=== PATIENT | male | born 1995 | race Caucasian/White ===

== ENCOUNTER → 2018-03-28 | Outpatient (CLI) | payer OTHER ==
--- NOTE | 2018-03-28 18:05 | CONS ---
CONSULTATION DATE OF SERVICE: 03/28/2018 A 22-year-old gentleman who has been evaluated in the sleep center for possible obstructive sleep apnea-hypopnea syndrome. HISTORY OF PRESENT ILLNESS AND SLEEP-WAKE EVALUATION: His sleep schedule working days from 10:00 P.M.-12:00 p.m. until 4:30 a.m., on the weekend from about 11:00 p.m.-1:00 a.m. until 7:00 a.m. Sometimes it takes him a long time to fall asleep, more than 30 minutes and more than 60 minutes. He, although, does not have TV in bedroom, sleeps on the side position. No restless leg symptoms. At night he has loud snoring and witnessed episodes of stopped breathing during the sleep by his girlfriend. He wakes up with gasping for air and sleep talking up to 3 times and has 1 episode of nocturia. Positive history of choking at night and kicking at night. No history of sleepwalking. No history of falling from bed. [place] Sleepiness Scale is 8. The patient does not take any naps usually. PAST MEDICAL HISTORY: Positive for fracture of the on the right side and cut on the head with stitches for treatment. MEDICATIONS: None. SOCIAL HISTORY: Positive for smoking about half pack a day for 6 years. Alcohol consumption occasional. FAMILY HISTORY: Hypertension, snoring, pneumonia, cancer, restless legs. REVIEW OF SYSTEMS: Snoring, multiple awakenings from sleep, witnessed episodes of stopped breathing in sleep. PHYSICAL EXAMINATION: GENERAL gentleman without distress. VITAL SIGNS BP 133/74, HR 98, RR 16, height 5 feet 7-1/2 inches, weight 140, BMI 21.6. Neck 14-1/4 inches in circumference. Temperature 98.5, oxygen saturation at room air 96%. HEENT PERRLA, EOMI, evaluation of oropharynx showed tongue protrudes midline, moderately low position of soft palate, small oropharyngeal air space. Some restriction of nasal breathing. Neck Supple, no JVD. Thyroid is not palpable. LUNGS Clear to percussion and to auscultation. Good air exchange. No wheezing or rhonchi. HEART S1, S2 regular. No murmurs, gallops, or rubs. ABDOMEN Soft and nontender. Bowel sounds are present. No organomegaly appreciated. EXTREMITIES No clubbing or cyanosis. PERSONAL BANKING ASSISTANT Awake, alert, and oriented X3. Cranial nerves 2 to 7 intact. There is no fasciculation or atrophy. noted. No focal deficits observed. IMPRESSION: 1. Snoring, witnessed episodes of stopped breathing during sleep. Small oropharyngeal air space, some restriction of nasal breathing, obstructive sleep apnea-hypopnea syndrome. 2. Smoker for about 6 years. 3. History of fracture of on the left side. 4. Status post cut of the head treated surgically. PLAN: 1. Polysomnography for evaluation of patient's breathing during sleep. 2. CPAP/BiPAP titration if sleep study confirms obstructive sleep apnea-hypopnea syndrome. 3. Preferable position during sleep on the side. 4. No driving if patient feels any sleepiness. 5. I will see patient for follow up visit to explain results of testing and following plan. Thank you very much for referring this patient for consultation. Sincerely, Juvenal Aguilera MD, PhD, FAASM Diplomat of [employer] [facility] [place] MMODL / TIARAN: [id number] /
== END | disposition home or self-care (01) ==
LOC: SLEEP 16:59
PROVIDERS: ATTEND Internal Medicine
DX: G47.33 Obstructive sleep apnea (adult) (pediatric) (principal); R35.1 Nocturia; Z87.81 Personal history of (healed) traumatic fracture; Z87.891 Personal history of nicotine dependence
CPT/HCPCS: 99201